=== PATIENT | female | born 1985 | race Caucasian/White ===

== ENCOUNTER 2016-12-15 20:26 | Emergency (ER) | payer OTHER ==
[~2016-12-15] VITALS: Ht 167.6 cm; Wt 57.0 kg
[~2016-12-15 20:26] MED LIST: DEPAKOTE500 MG PO; DILAUDID2 MG PO; ECOTRIN325 MG PO; ENDOCET 10-3251 EACH PO; ENDOCET 5-3251 EACH PO; FIORICET,ESG1 TABLET PO; FLAGYL500 MG PO; IBUPROFEN800 MG PO; IMITREX25 MG PO; MACROBID100 MG PO; MOTRIN800 MG PO; NABUMETONE750 MG PO; NAPROSYN500 MG PO; NOHOMEMEDS; NORCO 5/3251 TABLET PO; OPANA ER5 MG PO; OXYCODONE HCL10 MG PO; PEPCID40 MG PO; PERCOCET 10/1 TABLET PO; PERCOCET 5/31 TABLET PO; PRENATA CHEWAB1 EACH PO; REGLAN10 MG PO; TOPAMAX25 MG PO; VICODIN 5-5001 EACH PO; ZANTAC150 MG PO; ZOFRAN ODT4 MG PO
[2016-12-15 21:54] LABS: EOSINOPHIL (%) 0.6 % (0-5); EOSINOPHIL COUNT 0.1 K/uL (0-0.3); HEMATOCRIT 41.4 % (36.0-46.0); IMMATURE GRANULOCYTE (%) 0.2 % (0.0-0.7); IMMATURE GRANULOCYTE COUNT 0.2 K/uL; LYMPHOCYTE COUNT 1.9 K/uL (1.0-2.8); MCH 29.1 PG (29.0-34.0); MCHC 33.6 G/DL (30.0-36.0); MCV 86.8 FL (83-99); MEAN PLAT.VOLUME 10.1 uM^3 (9.5-12.4); MONOCYTE (%) 5.8 % (3-12); MONOCYTE COUNT 0.6 K/uL (0-0.8); NEUTROPHIL (%) 74.6 % (45-76); NEUTROPHIL COUNT 7.5 K/uL (1.8-6.4); PLATELET COUNT 264 K/uL (156-360); RBC DIS.WIDTH-CV 14.4 % (11.8-14.6); RBC DIS.WIDTH-SD 45.6 % (39-53); RED BLOOD COUNT 4.77 M/uL (3.80-5.20); WHITE BLOOD COUNT 10.1 K/uL (4.1-10.2)
[2016-12-15 22:02] LABS: AMYLASE 33 IU/L (1-118); CHLORIDE 110 mEq/L (99-109); SODIUM 143 mEq/L (136-147)
[2016-12-15 22:04] LABS: GLUCOSE 95 mg/dL (70-99)
[2016-12-15 22:05] LABS: ANION GAP 8 MEQ/L (2-14)
[2016-12-15 22:07] LABS: GFR ESTIMATE (CALCULATED) > 59 mL/min/; SERUM ETHYL ALCOHOL < 10 mg/dL
[2016-12-15 22:08] LABS: UREA NITROGEN (BUN) 8 mg/dL (9-23)
[2016-12-15 22:10] LABS: LIPASE 8 U/L (1.0-51.0)
[2016-12-15 22:21] LABS: QUANTITATIVE HCG < 4.0 MIU/ML
[2016-12-15 23:26] LABS: ADD MIUA? YES; BILIRUBIN NEGATIVE; BLOOD MODERATE; COLOR YELLOW ((YELLOW)); GLUCOSE (STRIP) NEGATIVE; KETONES NEGATIVE; LEUKOCYTES NEGATIVE; NITRITE NEGATIVE; PH, URINE 6.5 (5-8); PROTEIN (STRIP) TRACE; UROBILINOGEN 0.2 MG/DL (0.2-1.0)
[2016-12-15 23:34] LABS: AMPHETAMINE NEGATIVE (500 ng/mL); BARBITURATES NEGATIVE (200 ng/mL); BENZODIAZEPINES NEGATIVE (150 ng/mL); COCAINE NEGATIVE (150 ng/mL); METHADONE NEGATIVE (200 ng/mL); METHAMPHETAMINE NEGATIVE (500 ng/mL); OPIATES (MORPHINE) PRESUMPTIVE POSITIVE (100 ng/mL); OXYCODONE PRESUMPTIVE POSITIVE (100 ng/mL); PHENCYCLIDINE NEGATIVE (25 ng/mL); PROPOXYPHENE NEGATIVE (300 ng/mL); THC CANNABINOIDS NEGATIVE (50 ng/mL); TRICYCLIC ANTIDEPRESSANTS NEGATIVE (300 ng/mL)
[2016-12-15 23:35] LABS: ADD MEDTOX COMMENT Y; INTERNAL CONTROLS VALID? YES
[2016-12-16] MEDS ORDERED: PERCOCET 5/31 TABLET PO (00:58)
[2016-12-16 01:04] LABS: BACTERIA NONE SEEN; CASTS NONE SEEN /LPF; CRYSTALS NONE SEEN; EPITHELIAL CELLS RARE; MUCUS NONE SEEN; RED BLOOD CELLS NONE SEEN /HPF (0-5); UCUL ADDED? NO; WHITE BLOOD CELLS 0-5 /HPF (0-5)
[2016-12-16 01:23] VITALS: BP 93/49
== END 2016-12-16 01:24 | disposition home or self-care (01) ==
LOC: EME 20:26
PROVIDERS: Emergency Medicine
DX: S06.0X9A Concussion with loss of consciousness of unspecified duration, initial encounter (principal); R55 Syncope and collapse; M54.2 Cervicalgia; M25.511 Pain in right shoulder; V49.40XA Driver injured in collision with unspecified motor vehicles in traffic accident, initial encounter; W22.10XA Striking against or struck by unspecified automobile airbag, initial encounter; F17.200 Nicotine dependence, unspecified, uncomplicated; Z71.6 Tobacco abuse counseling; Z79.82 Long term (current) use of aspirin; Z91.040 Latex allergy status; Z88.6 Allergy status to analgesic agent
CPT/HCPCS: 70450; 72125; 72141; 73030; 80048; 81003; 82150; 83690; 84702; 84999; 85025; 86850; 86900; 86901; 99281; 99285; G0480; J1170; J2060; J2270; J2405; J7030